=== PATIENT | female | born 1970 | race Caucasian/White ===

== ENCOUNTER 2016-07-19 01:33 | Emergency (ER) | payer BC, MEDICAID ==
[~2016-07-19] VITALS: Ht 167.6 cm; Wt 61.0 kg
[2016-07-19] MEDS ORDERED: MORPHINE SULFATE 4 MG/ML CPJ (NOT FOR IM USE) IV STA (02:40)
[2016-07-19] MEDS ORDERED: ONDANSETRON HCL 4MG/2ML VIAL IV STA (02:40)
[2016-07-19] MEDS ORDERED: SODIUM CHLORIDE 0.9% 1,000 ML IV ONE (02:40)
[2016-07-19 02:55] LABS: BASOPHILS % 0.6 % (0.0-2.0); EOSINOPHILS % 0.6 % (0.0-5.0); HEMATOCRIT. 40.3 % (36.0-48.0); HEMOGLOBIN. 13.3 g/dL (12.0-16.0); LYMPHOCYTES % 19.8 % (20.0-50.0); MEAN CORPUSCULAR HEMOGLOBIN 29.3 pg (28.0-32.0); MEAN CORPUSCULAR HGB CONC 33.1 g/dL (31.0-37.0); MEAN CORPUSCULAR VOLUME 88.6 fL (81.0-99.0); MEAN PLATELET VOLUME 8.7 fl (7.4-10.4); MONOCYTES % 6.5 % (2.0-8.0); NEUTROPHILS % 72.5 % (40.0-76.0); PLATELET 320 x1000/uL (130-400); RED BLOOD CELL COUNT 4.55 mill/uL (4.2-5.4); RED CELL DISTRIBUTION WIDTH 13.7 % (11.6-14.6); WHITE BLOOD COUNT 12.7 x1000/uL (4.5-11.0)
[2016-07-19 03:05] LABS: INR 1.1; PROTHROMBIN TIME 11.3 sec
[2016-07-19 03:08] LABS: ALANINE AMINOTRANSFERASE 19 IU/L (13-61); ALBUMIN 3.7 g/dL (3.4-5.0); CARBON DIOXIDE 29 mEq/L (21-32); INDEX HEMOLYSI 1 (1-3); INDEX ICTERIC 1 (1-4); INDEX LIPEMIC 1 (1-3); UREA NITROGEN BLOOD 16 mg/dL (7-21); eGFR > 60 mL/min (>60)
[2016-07-19 03:15] LABS: ANION GAP 12; CALCIUM 9.1 mg/dL (8.5-10.1); CHLORIDE 103 mEq/L (98-107)
[2016-07-19 03:27] LABS: CLARITY URINE CLEAR (CLEAR); COLOR URINE YELLOW (YELLOW); GLUCOSE URINE NEGATIVE (NEGATIVE); KETONES URINE NEGATIVE (NEGATIVE); LEUKOCYTE ESTERASE URINE NEGATIVE (NEGATIVE); NITRITE URINE NEGATIVE (NEGATIVE); OCCULT BLOOD URINE 3+ (NEGATIVE); PROTEIN URINE NEGATIVE (NEGATIVE)
[2016-07-19 03:45] LABS: RBC URINE 0-2 /hpf (0-2); WBC URINE 0-2 /hpf (0-2)
[2016-07-19 03:46] LABS: BACTERIA URINE TRACE; SQUAMOUS EPITHELIAL CELL URINE RARE /lpf (RARE/1+)
[2016-07-19 04:00] VITALS: BP 139/87
== END 2016-07-19 04:26 | disposition home or self-care (01) ==
LOC: ER 01:35
DX: K92.2 Gastrointestinal hemorrhage, unspecified (principal); K92.1 Melena; R09.81 Nasal congestion; F12.10 Cannabis abuse, uncomplicated; F17.200 Nicotine dependence, unspecified, uncomplicated; Z88.1 Allergy status to other antibiotic agents
CPT/HCPCS: 36415; 80053; 81001; 85025; 85610; 87077; 87086; 96360; 99284; J7030; Z7610; J2270; J2405

== ENCOUNTER 2016-08-27 14:21 | Emergency (ER) | payer BC, MEDICAID ==
[~2016-08-27] VITALS: Ht 167.6 cm; Wt 75.0 kg
[2016-08-27 15:41] VITALS: BP 120/71
== END 2016-08-28 00:30 | disposition left against medical advice (07) ==
LOC: ER 08-28 00:24
DX: M54.9 Dorsalgia, unspecified (principal); Z53.21 Procedure and treatment not carried out due to patient leaving prior to being seen by health care provider

== ENCOUNTER 2016-11-01 07:02 | Emergency (ER) | payer BC, MEDICAID ==
[~2016-11-01] VITALS: Ht 167.6 cm; Wt 58.0 kg
[2016-11-01] MEDS ORDERED: ACETAMINOPHEN 325MG TABLET PO STA (09:06)
[2016-11-01] MEDS ORDERED: SODIUM CHLORIDE 0.9% 1,000 ML IV ONE (09:06)
[2016-11-01 09:29] LABS: BASOPHILS % 0.4 % (0.0-2.0); EOSINOPHILS % 0.3 % (0.0-5.0); HEMOGLOBIN. 13.4 g/dL (12.0-16.0); LYMPHOCYTES % 11.2 % (20.0-50.0); MEAN CORPUSCULAR HEMOGLOBIN 29.3 pg (28.0-32.0); MEAN CORPUSCULAR VOLUME 87.3 fL (81.0-99.0); MEAN PLATELET VOLUME 8.1 fl (7.4-10.4); MONOCYTES % 8.4 % (2.0-8.0); NEUTROPHILS % 79.7 % (40.0-76.0); PLATELET 385 x1000/uL (130-400); RED BLOOD CELL COUNT 4.59 mill/uL (4.2-5.4); RED CELL DISTRIBUTION WIDTH 15.4 % (11.6-14.6)
[2016-11-01 09:33] LABS: GLUCOSE URINE NEGATIVE (NEGATIVE); KETONES URINE NEGATIVE (NEGATIVE); LEUKOCYTE ESTERASE URINE 3+ (NEGATIVE); NITRITE URINE POSITIVE (NEGATIVE); OCCULT BLOOD URINE 2+ (NEGATIVE); PH URINE 6.5 (4.5-8.0); PROTEIN URINE 1+ (NEGATIVE); SPECIFIC GRAVITY URINE 1.015 (1.005-1.030)
[2016-11-01 09:37] LABS: INR 1.1; PROTHROMBIN TIME 10.9 sec
[2016-11-01 09:44] LABS: CARBON DIOXIDE 30 mEq/L (21-32); CHLORIDE 99 mEq/L (98-107); ETHANOL BLOOD < 10 mg/dL
[2016-11-01 09:54] LABS: *AMPHETAMINES SCREEN URINE PRESUMTIVE POSITIVE (NEGATIVE); *BARBITURATES SCREEN URINE NEGATIVE (NEGATIVE); *BENZODIAZEPINES SCREEN URINE NEGATIVE (NEGATIVE); *COCAINE SCREEN URINE NEGATIVE (NEGATIVE); CANNABINOID URINE SCREEN NEGATIVE (NEGATIVE); METHADONE URINE SCREEN NEGATIVE (NEGATIVE); OPIATES URINE SCREEN PRESUMTIVE POSITIVE (NEGATIVE); PHENCYCLIDINE URINE SCREEN NEGATIVE (NEGATIVE)
[2016-11-01 10:09] LABS: CLARITY URINE TURBID (CLEAR); COLOR URINE YELLOW (YELLOW)
[2016-11-01] MEDS ORDERED: LEVOFLOXACIN 750MG PREMIX 150 ML IV ONE (10:30)
[2016-11-01 13:11] VITALS: BP 121/69
== END 2016-11-01 13:12 | disposition home or self-care (01) ==
LOC: ER 08:33
DX: N39.0 Urinary tract infection, site not specified (principal); F12.10 Cannabis abuse, uncomplicated; Z72.0 Tobacco use; Z88.1 Allergy status to other antibiotic agents; Z88.8 Allergy status to other drugs, medicaments and biological substances
CPT/HCPCS: 36415; 80053; 80305; 81001; 81025; 83690; 85025; 85610; 96361; 96365; 96366; 99285; G0482; J1956; J7030; Z7610

== ENCOUNTER 2016-11-01 19:52 | Emergency (ER) | payer BC, MEDICAID ==
[~2016-11-01] VITALS: Ht 167.6 cm; Wt 59.0 kg
[2016-11-01] MEDS ORDERED: HYDROCODONE/ACETAMINOPHEN 5/325MG TABLET PO ONE (23:45)
[2016-11-02 00:02] VITALS: BP 105/61
== END 2016-11-02 00:04 | disposition home or self-care (01) ==
LOC: ER 19:52
DX: N39.0 Urinary tract infection, site not specified (principal); F17.200 Nicotine dependence, unspecified, uncomplicated; Z88.1 Allergy status to other antibiotic agents; Z88.8 Allergy status to other drugs, medicaments and biological substances
CPT/HCPCS: 99282

== ENCOUNTER 2016-11-19 14:01 | Emergency (ER) | payer BC, MEDICAID ==
[~2016-11-19] VITALS: Ht 167.6 cm; Wt 58.0 kg
[2016-11-19 14:02] VITALS: BP 113/70
== END 2016-11-19 22:36 | disposition home or self-care (01) ==
LOC: ER 21:45
DX: R30.0 Dysuria (principal); Z88.1 Allergy status to other antibiotic agents; Z87.440 Personal history of urinary (tract) infections; Z91.048 Other nonmedicinal substance allergy status
CPT/HCPCS: 87086; 99283

== ENCOUNTER 2016-11-26 15:48 | Emergency (ER) | payer BC, MEDICAID ==
[~2016-11-26] VITALS: Ht 162.6 cm; Wt 75.0 kg
[2016-11-26 15:49] VITALS: BP 127/81
== END 2016-11-26 18:30 | disposition left against medical advice (07) ==
LOC: ER 16:02
DX: R10.30 Lower abdominal pain, unspecified (principal); Z53.21 Procedure and treatment not carried out due to patient leaving prior to being seen by health care provider

== ENCOUNTER 2017-04-24 05:19 | Emergency (ER) | payer BC, MEDICAID ==
[~2017-04-24] VITALS: Ht 172.7 cm; Wt 61.0 kg
[2017-04-24] MEDS ORDERED: ASPIRIN 81MG TABLET PO STA (07:06)
[2017-04-24] MEDS ORDERED: LEVOFLOXACIN 750MG PREMIX 150 ML IV ONE (07:15)
[2017-04-24] MEDS ORDERED: SODIUM CHLORIDE 0.9% 1000ML BAG (SEPSIS BOLUS) IV ONE (07:15)
[2017-04-24] MEDS ORDERED: OSELTAMIVIR 75MG CAPSULE PO ONE (07:15)
[2017-04-24] MEDS ORDERED: NITROGLYCERIN 0.4MG TABLET SL SL PRN (07:15)
[2017-04-24 07:52] LABS: BASOPHILS % 0.6 % (0.0-2.0); EOSINOPHILS % 1.7 % (0.0-5.0); HEMATOCRIT. 38.5 % (36.0-48.0); HEMOGLOBIN. 12.5 g/dL (12.0-16.0); LYMPHOCYTES % 19.4 % (20.0-50.0); MEAN CORPUSCULAR HEMOGLOBIN 28.9 pg (28.0-32.0); MEAN PLATELET VOLUME 8.8 fl (7.4-10.4); MONOCYTES % 7.7 % (2.0-8.0); NEUTROPHILS % 70.6 % (40.0-76.0); PLATELET 312 x1000/uL (130-400); RED BLOOD CELL COUNT 4.33 mill/uL (4.2-5.4); RED CELL DISTRIBUTION WIDTH 16.6 % (11.6-14.6)
[2017-04-24 08:03] LABS: D-DIMER 0.37 mg/L FEU (<0.50); INR 1.1; PARTIAL THROMBOPLASTIN TIME 30.6 sec (23.4-31.0); PROTHROMBIN TIME 11.4 sec (9.4-11.6)
[2017-04-24 08:10] LABS: CARBON DIOXIDE 27 mEq/L (21-32); CHLORIDE 105 mEq/L (98-107); TROPONIN I < 0.02 ng/mL (0.00-0.04)
[2017-04-24 08:16] VITALS: BP 114/74
[2017-04-24 08:57] LABS: HCG SCREEN NEGATIVE
[2017-04-24] MEDS ORDERED: PROMETHAZINE/DEXTROMETHORPHAN 6.25-15MG/5ML BOTTLE 120ML PO PRN (09:15)
[2017-04-24] MEDS ORDERED: IPRATROPIUM/ALBUTEROL 0.5-3(2.5)MG/3ML NEB HHN PRN (09:15)
[2017-04-24] MEDS ORDERED: PNEUMOCOCCAL 23-VAL P-SAC VAC 0.5 ML IM ONE (09:30)
[2017-04-24] MEDS ORDERED: AZITHROMYCIN 500 MG TABLET PO SCH (11:30)
== END 2017-04-24 13:40 | disposition left against medical advice (07) ==
LOC: ER 05:42 → EDBEDREQ 09:36 → ER 13:40 → CANBEDREQ 16:11
DX: R07.9 Chest pain, unspecified (principal); R05 Cough; Z87.01 Personal history of pneumonia (recurrent)
CPT/HCPCS: 36415; 71045; 80053; 83605; 83880; 84484; 84703; 85025; 85379; 85610; 85730; 86850; 86900; 86901; 87040; 87804; 93005; 96361; 96365; 96372; 99285; J1956; Z7610; 90732; J7030

== ENCOUNTER 2017-10-29 09:19 | Emergency (ER) | payer MEDICAID ==
[~2017-10-29] VITALS: Ht 167.6 cm; Wt 55.0 kg
[2017-10-29 10:43] LABS: HEMATOCRIT. 41.3 % (36.0-48.0); HEMOGLOBIN. 13.9 g/dL (12.0-16.0); MEAN CORPUSCULAR HEMOGLOBIN 30.1 pg (28.0-32.0); MEAN CORPUSCULAR VOLUME 89.7 fL (81.0-99.0); MEAN PLATELET VOLUME 8.8 fl (7.4-10.4); PLATELET 259 x1000/uL (130-400); RED BLOOD CELL COUNT 4.61 mill/uL (4.2-5.4); RED CELL DISTRIBUTION WIDTH 13.8 % (11.6-14.6)
[2017-10-29 10:50] LABS: CHLORIDE 105 mEq/L (98-107)
[2017-10-29] MEDS ORDERED: ACETAMINOPHEN WITH CODEINE 300/30MG TABLET PO ONE (11:30)
[2017-10-29 11:39] LABS: CLARITY URINE CLEAR (CLEAR); COLOR URINE YELLOW (YELLOW); KETONES URINE NEGATIVE (NEGATIVE); LEUKOCYTE ESTERASE URINE NEGATIVE (NEGATIVE); NITRITE URINE NEGATIVE (NEGATIVE); OCCULT BLOOD URINE NEGATIVE (NEGATIVE); PH URINE 7.5 (4.5-8.0); PROTEIN URINE NEGATIVE (NEGATIVE); SPECIFIC GRAVITY URINE 1.015 (1.005-1.030); UROBILINOGEN URINE 0.2 E.U./dL (0.2-1.0)
[2017-10-29 11:42] LABS: PLATELET ESTIMATE NORMAL
[2017-10-29 12:06] VITALS: BP 106/64
== END 2017-10-29 12:43 | disposition left against medical advice (07) ==
LOC: ER 09:30
DX: R10.30 Lower abdominal pain, unspecified (principal); I49.9 Cardiac arrhythmia, unspecified; R50.9 Fever, unspecified; R53.1 Weakness; M79.1 Myalgia; Z87.01 Personal history of pneumonia (recurrent); Z88.1 Allergy status to other antibiotic agents; Z87.440 Personal history of urinary (tract) infections
CPT/HCPCS: 36415; 80053; 81003; 81025; 82962; 85025; 99284; Z7610